=== PATIENT | female | born 1970 | race Asian ===

== ENCOUNTER 2023-12-30 22:22 | Inpatient (IN) | payer OTHER ==
[2023-12-30 23:01] LABS: URINE APPEARANCE Clear; URINE BILIRUBIN Negative (NEGATIVE); URINE COLOR Yellow; URINE GLUCOSE (UA) Negative (NEGATIVE); URINE KETONE Negative (NEGATIVE); URINE LEUK ESTERASE Negative (NEGATIVE); URINE NITRITE Negative (NEGATIVE); URINE PROTEIN Negative (NEGATIVE); URINE UROBILINOGEN 0.2 mg/dL (0.2-1.0)
[2023-12-30] MEDS ORDERED: KETOROLAC TROMETHAMINE 15 MG/ML VIAL ONE (23:28)
[2023-12-30 23:57] LABS: VENOUS BASE EXCESS -0.1 mmol/L (-2-2); VENOUS O2 SATURATION 70.7 % (70-80); VENOUS PCO2 36.3 mmHg (38-52); VENOUS PH 7.434 (7.310-7.410)
[2023-12-30 23:59] LABS: BASO % 0.5 % (0-2.0); EOS % 0.9 % (0-4.5); HEMATOCRIT 26.6 % (32.4-45.2); HEMOGLOBIN 8.6 GM/dL (10.7-15.3); LYMPH % 17.1 % (8-40); MCH 26.2 pg (25.7-33.7); MCHC 32.4 g/dl (32.0-36.0); MEAN CELL VOLUME 80.9 fl (80-96); MEAN PLT VOLUME 6.5 fl (7.5-11.1); MONO % 7.3 % (3.8-10.2); NEUT % 74.2 % (42.8-82.8); PLATELET COUNT 560 10^3/uL (134-434); RBC 3.29 M/mm3 (3.60-5.2); RDW 14.2 % (11.6-15.6); WHITE BLOOD COUNT 15.3 K/mm3 (4.0-10.0)
[2023-12-31] MEDS: SODIUM CHLORIDE 0.9% 1000 ML INFUS.BAG IV ONE
[2023-12-31] MEDS: KETOROLAC TROMETHAMINE 15 MG/ML VIAL IVPUSH ONE
[2023-12-31 00:04] LABS: INR 1.64 (0.83-1.09); PROTHROMBIN TIME (PATIENT) 18.3 SEC (9.7-13.0)
[2023-12-31 00:06] LABS: ACTIVATED PTT 33.2 SECONDS (25.2-36.5)
[2023-12-31 00:19] LABS: POTASSIUM 4.4 mmol/L (3.5-5.1)
[2023-12-31 00:20] LABS: CALCIUM 8.7 mg/dL (8.5-10.1)
[2023-12-31 00:21] LABS: ALBUMIN 2.7 g/dl (3.4-5.0); BLOOD UREA NITROGEN 13.9 mg/dL (7-18)
[2023-12-31 00:25] LABS: BILIRUBIN,TOTAL 0.3 mg/dL (0.2-1)
[2023-12-31 00:26] LABS: TOT PROT 7.1 g/dl (6.4-8.2)
[2023-12-31] MEDS ORDERED: PIPERACILLIN/TAZOB 4.5 GM 4.5 GM/100 ML BAG IVPB ONE (02:27)
[2023-12-31] MEDS: PIPERACILLIN/TAZOB 4.5 GM 4.5 GM in DEXTROSE 5%-WATER 100 ML IVPB ONE (02:39)
[2023-12-31] MEDS: SODIUM CHLORIDE 1,000 ML IV SCH (06:01)
[2023-12-31 06:25] LABS: HEMATOCRIT 25.8 % (32.4-45.2); HEMOGLOBIN 8.2 GM/dL (10.7-15.3); MCH 26.2 pg (25.7-33.7); MCHC 31.9 g/dl (32.0-36.0); MEAN CELL VOLUME 82.1 fl (80-96); MEAN PLT VOLUME 6.6 fl (7.5-11.1); PLATELET COUNT 511 10^3/uL (134-434); RBC 3.14 M/mm3 (3.60-5.2); RDW 14.5 % (11.6-15.6); WHITE BLOOD COUNT 13.1 K/mm3 (4.0-10.0)
[2023-12-31 06:31] LABS: POTASSIUM 4.4 mmol/L (3.5-5.1)
[2023-12-31 06:33] LABS: CALCIUM 8.2 mg/dL (8.5-10.1)
[2023-12-31 06:34] LABS: ALBUMIN 2.4 g/dl (3.4-5.0); BLOOD UREA NITROGEN 12.4 mg/dL (7-18); MAGNESIUM 2.2 mg/dL (1.8-2.4)
[2023-12-31 06:39] LABS: BILIRUBIN,TOTAL 0.4 mg/dL (0.2-1); TOT PROT 6.3 g/dl (6.4-8.2)
[2023-12-31] MEDS ORDERED: MORPHINE SULFATE 2 MG/ML SYRINGE ONE ×2 (08:50→17:44)
[2023-12-31] MEDS: MORPHINE SULFATE 2 MG/ML SYRINGE IVPUSH ONE (09:07)
[2023-12-31] MEDS ORDERED: PIPERACILLIN/TAZOB 3.375 GM 3.375 GM in DEXTROSE 5%-WATER - 50 ML IVPB SCH (10:00)
[2023-12-31] MEDS ORDERED: PERPHENAZINE 8 MG TABLET PO SCH (10:00)
[2023-12-31] MEDS ORDERED: buPROPion HCL 100 MG TABLET ONE (10:06)
[2023-12-31] MEDS ORDERED: PIPERACILLIN/TAZOB 3.375 GM 3.375 GM/50 ML BAG IVPB ONE ×2 (10:07→17:44)
[2023-12-31] MEDS: PIPERACILLIN/TAZOB 3.375 GM 3.375 GM in DEXTROSE 5%-WATER - 50 ML IVPB SCH (10:15)
[2023-12-31] MEDS: PERPHENAZINE 2 MG TABLET PO SCH (10:15)
[2023-12-31] MEDS: BENZTROPINE MESYLATE 0.5 MG TABLET (FP) PO SCH (11:18)
[2023-12-31] MEDS ORDERED: traMADol HCL 50 MG TABLET PO PRN (17:08)
[2023-12-31] MEDS ORDERED: ACETAMINOPHEN INJECTION 100 ML IVPB ONE (17:53)
[2023-12-31] MEDS: ACETAMINOPHEN 1000 MG/100 ML BAG IVPB PRN (17:55)
[2023-12-31] MEDS: PERPHENAZINE 4 MG TABLET PO SCH (22:34)
[2024-01-01 00:02] VITALS: BMI 22.3
[2024-01-01 09:27] LABS: BASO % 0.5 % (0-2.0); EOS % 1.6 % (0-4.5); HEMATOCRIT 24.7 % (32.4-45.2); HEMOGLOBIN 8.1 GM/dL (10.7-15.3); LYMPH % 10.3 % (8-40); MCH 26.9 pg (25.7-33.7); MCHC 32.8 g/dl (32.0-36.0); MEAN CELL VOLUME 82.1 fl (80-96); MEAN PLT VOLUME 6.7 fl (7.5-11.1); MONO % 6.6 % (3.8-10.2); PLATELET COUNT 538 10^3/uL (134-434); RBC 3.01 M/mm3 (3.60-5.2); RDW 14.5 % (11.6-15.6); WHITE BLOOD COUNT 14.9 K/mm3 (4.0-10.0)
[2024-01-01 09:53] LABS: POTASSIUM 4.4 mmol/L (3.5-5.1)
[2024-01-01 10:00] LABS: ALBUMIN 2.3 g/dl (3.4-5.0); CALCIUM 8.2 mg/dL (8.5-10.1)
[2024-01-01 10:01] LABS: BLOOD UREA NITROGEN 8.6 mg/dL (7-18)
[2024-01-01 10:05] LABS: TOT PROT 6.2 g/dl (6.4-8.2)
[2024-01-01] MEDS: PIPERACILLIN/TAZOB 3.375 GM 3.375 GM in DEXTROSE 5%-WATER - 50 ML IVPB ONE (11:50)
[2024-01-01] MEDS: IRON SUCROSE INJECTION 200 MG in SODIUM CHLORIDE 100 ML IVPB ONE (17:13)
[2024-01-01] MEDS: PIPERACILLIN/TAZOB 3.375 GM 3.375 GM in DEXTROSE 5%-WATER - 50 ML IVPB SCH (18:31)
[2024-01-02 08:12] LABS: BASO % 0.5 % (0-2.0); EOS % 1.8 % (0-4.5); HEMATOCRIT 27.5 % (32.4-45.2); HEMOGLOBIN 8.7 GM/dL (10.7-15.3); LYMPH % 11.7 % (8-40); MCH 26.3 pg (25.7-33.7); MCHC 31.7 g/dl (32.0-36.0); MEAN CELL VOLUME 83.1 fl (80-96); MEAN PLT VOLUME 6.7 fl (7.5-11.1); MONO % 5.8 % (3.8-10.2); NEUT % 80.2 % (42.8-82.8); PLATELET COUNT 630 10^3/uL (134-434); RBC 3.31 M/mm3 (3.60-5.2); RDW 14.4 % (11.6-15.6); WHITE BLOOD COUNT 15.4 K/mm3 (4.0-10.0)
[2024-01-02 08:24] LABS: POTASSIUM 4.4 mmol/L (3.5-5.1)
[2024-01-02 08:27] LABS: CALCIUM 8.6 mg/dL (8.5-10.1)
[2024-01-02 08:28] LABS: ALBUMIN 2.5 g/dl (3.4-5.0)
[2024-01-02 08:31] LABS: CREATININE 1.1 mg/dL (0.55-1.3)
[2024-01-02 08:32] LABS: BILIRUBIN,TOTAL 0.7 mg/dL (0.2-1); TOT PROT 6.8 g/dl (6.4-8.2)
[2024-01-02] MEDS: IRON SUCROSE INJECTION 200 MG in SODIUM CHLORIDE 100 ML IVPB ONE (10:42)
[2024-01-02 14:35] VITALS: BP 110/62; PULSE 93; RESP 20; TEMP 98.3
== END 2024-01-02 14:35 | disposition home or self-care (01) | DRG 392 ==
LOC: JER 22:22 → JERBED 12-31 03:17 → OBSVTOIN 12-31 14:36 → J8W 12-31 23:37
PROVIDERS: ADMIT Internal Medicine; ATTEND Internal Medicine
DX: R19.09 Other intra-abdominal and pelvic swelling, mass and lump (principal); D72.829 Elevated white blood cell count, unspecified; F32.A Depression, unspecified; D25.9 Leiomyoma of uterus, unspecified; D50.9 Iron deficiency anemia, unspecified; D63.8 Anemia in other chronic diseases classified elsewhere; R50.9 Fever, unspecified
CPT/HCPCS: 0241U-QW; 36415; 71046-TC-FY; 72197-TC; 74177-TC; 76830-TC; 76856-TC; 80053; 81003; 82272; 82378; 82728; 82803; 83540; 83550; 83605; 83690; 83735; 84466; 84484; 84702; 85025; 85027; 85045; 85610; 85730; 86300; 86304; 86850; 86900; 86901; 87040; 87086; 93005; 93010; 93970-TC; 99285-25; G0378; J0131; J1756; Q9967